=== PATIENT | male | born 1965 | race Caucasian/White ===

== ENCOUNTER 2018-07-28 09:42 | Emergency (ER) | payer OTHER ==
--- NOTE | 2018-07-28 10:30 | EDM.PDOC ---
ED HPI GENERAL MEDICAL PROBLEM - General Chief Complaint: Lower Extremity Injury/Pain Stated Complaint: STAGE 4 CANCER LEG PAIN MAYBE INFECTION Time Seen by Provider: 07/28/18 10:10 Source of Information: Reports: Patient History Limitations: Reports: No Limitations - History of Present Illness INITIAL COMMENTS - FREE TEXT/NARRATIVE: 53-year-old male with metastatic renal cancer has developed an inflammatory red painful right knee over the past 3 days. No trauma. He takes a daily dose of chemotherapy, it is his only medication. Onset: Gradual Duration: Day(s): (3 days) Associated Symptoms: Denies: Fever/Chills Right Knee Pain Score (Numeric/FACES): 9 - Related Data Allergies Allergy/AdvReac Type Severity Reaction Status Date / Time aspirin [From Percodan] Allergy Facial Verified 07/28/18 09:56 Swelling oxycodone [From Percodan] Allergy Facial Verified 07/28/18 09:56 Swelling Home Meds: Home Meds *Medical Marijuana 07/28/18 [History] Cabozantinib S-Malate [Cabometyx] 40 mg PO DAILY 07/28/18 [History] Past Medical History Genitourinary History: Reports: Other (See Below) Other Genitourinary History: one kidney Musculoskeletal History: Reports: Fracture Oncologic (Cancer) History: Reports: Metastatic, Renal - Past Surgical History Respiratory Surgical History: Reports: Lung Resection, Other (See Below) Other Respiratory Surgeries/Procedures: Partial lung resection d/t cancer Male Surgical History: Reports: Nephrectomy, Other (See Below) Other Male Surgeries/Procedures: kidney removed d/t cancer Social & Family History - Tobacco Use Smoking Status *Q: Never Smoker - Recreational Drug Use Recreational Drug Use: No Review of Systems - Review of Systems Review Of Systems: See Below Constitutional: Denies: Fever Respiratory: Denies: Shortness of Breath Musculoskeletal: Reports: Leg Pain Skin: Reports: Erythema ED EXAM, GENERAL - Physical Exam Exam: See Below Exam Limited By: No Limitations General Appearance: Alert, Mild Distress (Looks fairly uncomfortable, especially when trying to move or ambulate) Respiratory/Chest: No Respiratory Distress Extremities: Other (Exam is limited to the lower extremities. The left knee is nontender, no swelling or effusion. The right knee compared to the left has some anterior swelling, is markedly tender and warm to touch over the prepatellar bursal area just below the patella. He has no pain laterally and no effusion.) Course - Vital Signs Last Recorded V/S: Last Vital Signs Temp 96.7 F 07/28/18 09:53 Pulse 88 07/28/18 09:53 Resp 16 07/28/18 09:53 BP 160/112 H 07/28/18 09:53 Pulse Ox 96 07/28/18 09:53 - Orders/Labs/Meds Orders: Active Orders 24 hr Category Date Time Status Knee 3V Rt [CR] Stat Exams 07/28/18 10:12 Taken - Re-Assessments/Exams Free Text/Narrative Re-Assessment/Exam: 07/28/18 10:37 An x-ray of the knee is done which confirms normal bones, no effusion or intra- articular or bony pathology. Patient will be placed on Augmentin 875 mg twice daily for presumed right knee cellulitis and bursitis. An Todd wrap was offered for support and he can increase activity as tolerated. Recheck in 48-72 hours if not improving or return sooner if worsening such as fever or increased erythema and pain. Departure - Departure Time of Disposition: 10:54 Disposition: Home, Self-Care 01 Condition: Good Clinical Impression: Bursitis of right knee Qualifiers: Knee bursitis location: prepatellar bursitis Qualified Code(s): M70.41 - Prepatellar bursitis, right knee - Discharge Information Instructions: Bursitis, [id number] Referrals: PCP,None [Primary Care Provider] - Forms: ED Department Discharge Care Plan Goals: Take antibiotic twice daily with food, warm compresses to the knee will increase the antibiotics effectiveness and fighting the infection an Todd wrap and will help swelling. Consider rechecking in 2-3 days if not improving satisfactorily or anytime sooner if worsening such as fever or increased swelling or pain despite treatment. - My Orders Last 24 Hours: My Active Orders 07/28/18 10:12 Knee 3V Rt [CR] Stat - Assessment/Plan Last 24 Hours: My Active Orders 07/28/18 10:12 Knee 3V Rt [CR] Stat
== END 2018-07-28 10:54 | disposition home or self-care (01) ==
LOC: JP.ED 09:42
DX: M70.41 Prepatellar bursitis, right knee (principal); C64.9 Malignant neoplasm of unspecified kidney, except renal pelvis; Z88.5 Allergy status to narcotic agent; Z88.8 Allergy status to other drugs, medicaments and biological substances; Z79.899 Other long term (current) drug therapy
CPT/HCPCS: 73562-RT; 99283

== ENCOUNTER 2019-08-04 16:44 | Emergency (ER) | payer MEDICARE, OTHER ==
--- NOTE | 2019-08-04 17:43 | EDM.PDOC ---
<Glenn Ferro D - Last Filed: 08/04/19 18:12> ED HPI GENERAL MEDICAL PROBLEM - General Chief Complaint: Fever Stated Complaint: FEVER Time Seen by Provider: 08/04/19 17:30 Source of Information: Reports: Patient History Limitations: Reports: No Limitations - History of Present Illness INITIAL COMMENTS - FREE TEXT/NARRATIVE: 54-year-old male with metastatic renal cell carcinoma was called for follow-up today on his depression and he told his primary provider that he was running a fever. Because of his chemotherapy, radiation, and possible dehydration he was told to go to the emergency room to get evaluated. He does feel weak, chilled, but he is breathing, chronic cough, abdominal symptoms are all stable and chronic. He also has a significant sore throat. Onset: Unknown/Unsure Improves with: Reports: None Worsens with: Reports: None Associated Symptoms: Reports: Cough, Loss of Appetite, Malaise, Weakness, Other (Ongoing weight loss) Throat Pain Score (Numeric/FACES): 8 - Related Data Allergies Allergy/AdvReac Type Severity Reaction Status Date / Time aspirin [From Percodan] Allergy Facial Verified 08/04/19 17:08 Swelling oxycodone [From Percodan] Allergy Facial Verified 08/04/19 17:08 Swelling Home Meds: Home Meds *Medical Marijuana 1 dose INH ASDIRECTED PRN 07/28/18 [History] Everolimus 5 mg PO DAILY 08/04/19 [History] Lenuatinib 2 cap PO DAILY 08/04/19 [History] Past Medical History Genitourinary History: Reports: Other (See Below) Other Genitourinary History: one kidney Musculoskeletal History: Reports: Fracture Oncologic (Cancer) History: Reports: Metastatic, Renal - Past Surgical History Respiratory Surgical History: Reports: Lung Resection, Other (See Below) Other Respiratory Surgeries/Procedures: Partial lung resection d/t cancer Male Surgical History: Reports: Nephrectomy, Other (See Below) Other Male Surgeries/Procedures: kidney removed d/t cancer Social & Family History - Tobacco Use Smoking Status *Q: Never Smoker Second Hand Smoke Exposure: No - Caffeine Use Caffeine Use: Reports: Coffee - Recreational Drug Use Recreational Drug Use: Yes Recreational Drug Type: Reports: Marijuana/Hashish Recreational Drug Use Frequency: Daily ED ROS GENERAL - Review of Systems Review Of Systems: See Below Constitutional: Reports: Fever, Chills, Malaise, Decreased Appetite HEENT: Reports: Throat Pain Respiratory: Reports: Cough. Denies: Shortness of Breath, Wheezing, Hemoptysis Cardiovascular: Reports: Chest Pain (Significant left lower chest pain from known pulmonary tumor burden) GI/Abdominal: Reports: Nausea, Other (Odynophagia). Denies: Diarrhea Musculoskeletal: Reports: Muscle Pain (Aching all over) Neurological: Reports: Dizziness, Weakness. Denies: Headache ED EXAM, GENERAL - Physical Exam Exam: See Below Exam Limited By: No Limitations General Appearance: Alert, No Apparent Distress Eye Exam: Bilateral Eye: EOMI, Normal Inspection (No jaundice, good hydration) Throat/Mouth: Normal Inspection, Other (No lesions or white plaques or patches seen) Head: Atraumatic Neck: Supple Respiratory/Chest: Other (Decreased breath sounds in the left base, no rales rhonchi or wheezes) Cardiovascular: Regular Rate, Rhythm, Tachycardia GI/Abdominal: Soft, Non-Tender Extremities: Normal Inspection. No: Pedal Edema, Slow Capillary Refill Neurological: Alert, Oriented Psychiatric: Normal Affect, Normal Mood Skin Exam: Warm, Dry Course - Vital Signs Last Recorded V/S: Last Vital Signs Temp 38.2 C H 08/04/19 19:46 Pulse 95 08/04/19 18:35 Resp 16 08/04/19 18:35 BP 113/72 08/04/19 18:35 Pulse Ox 96 08/04/19 18:35 - Orders/Labs/Meds Orders: Active Orders 24 hr Category Date Time Status CULTURE BLOOD [BC] Urgent Lab 08/04/19 17:42 Received CULTURE BLOOD [BC] Urgent Lab 08/04/19 18:00 Received CULTURE STREP A CONFIRMATION [] Stat Lab 08/04/19 18:05 Results STREP SCRN A RAPID W CULT CONF [] Stat Lab 08/04/19 18:05 Results MVI, Adult with Vitamin K [Infuvite Adult] 10 ml Med 08/04/19 17:45 Active Thiamine [Vitamin B-1] 100 mg Folic Acid 1 mg Magnesium Sulfate [Magnesium Sulfate 50%] 3 gm Sodium Chloride 0.9% [Normal Saline] 1,000 ml IV ASDIRECTED Blood Culture x2 Reflex Set [OM.PC] Urgent Oth 08/04/19 17:41 Ordered Medication Orders Multivitamins/Minerals 10 ml/Thiamine HCl 100 mg/ Folic Acid 1 mg/ Magnesium Sulfate 3 gm/ Sodium Chloride 1,017.2 mls @ 1,000 mls/hr IV ASDIRECTED SUE Last Admin: 08/04/19 18:17 Dose: 1,000 mls/hr Labs: Laboratory Tests 08/04/19 08/04/19 Range/Units 17:42 17:42 WBC (4.5-11.0) K/uL RBC (4.30-5.90) M/uL Hgb (12.0-15.0) g/dL Hct (40.0-54.0) % MCV (80-98) fL MCH (27-31) pg MCHC (32-36) % Plt Count (150-400) K/uL Neut % (Auto) (36-66) % Lymph % (Auto) (24-44) % Wirt % (Auto) (2-6) % Eos % (Auto) (2-4) % Baso % (Auto) (0-1) % Sodium 138 L (140-148) mmol/L Potassium 4.0 (3.6-5.2) mmol/L Chloride 99 L (100-108) mmol/L Carbon Dioxide 25 (21-32) mmol/L Anion Gap 18.0 H (5.0-14.0) mmol/L BUN 17 (7-18) mg/dL Creatinine 1.0 (0.8-1.3) mg/dL Est Cr Clr Drug Dosing 78.95 mL/min Estimated GFR (MDRD) > 60 (>60) Glucose 89 (74-106) mg/dL Calcium 9.3 (8.5-10.1) mg/dL Total Bilirubin 1.0 (0.2-1.0) mg/dL AST 21 (15-37) U/L ALT 26 (12-78) U/L Alkaline Phosphatase 73 (46-116) U/L Total Protein 7.6 (6.4-8.2) g/dL Albumin 3.7 (3.4-5.0) g/dL Globulin 3.9 H (2.3-3.5) g/dL Albumin/Globulin Ratio 1.0 L (1.2-2.2) Meds: Medications Generic Name Dose Route Start Last Admin Trade Name Freq PRN Reason Stop Dose Admin Multivitamins/Minerals 10 ml/ 1,017.2 mls @ 1,000 mls/hr 08/04/19 17:45 08/04 18:17 Thiamine HCl 100 mg/ Folic IV 1,000 mls/hr Acid 1 mg/ Magnesium Sulfate 3 ASDIRECTED SUE Administration gm/ Sodium Chloride Discontinued Medications Generic Name Dose Route Start Last Admin Trade Name Bravo PRN Reason Stop Dose Admin Acetaminophen 1,000 mg 08/04/19 18:33 08/04/19 19:08 Tylenol Extra Strength PO 08/04/19 18:34 Not Given ONETIME ONE Acetaminophen 960 mg 08/04/19 18:35 08/04/19 19:01 Tylenol Solution PO 08/04/19 18:36 960 mg ONETIME ONE Administration - Re-Assessments/Exams Free Text/Narrative Re-Assessment/Exam: 08/04/19 17:54 An IV was started, patient will be given a banana bag IV. Influenza antigens were obtained as well as a strep test, blood cultures, CBC and CMP. A two-view chest x-ray was ordered. 08/04/19 18:13 Dr. Choco May is assuming care pending lab and x-ray. Departure - Departure Disposition: Home, Self-Care 01 Clinical Impression: Fever - Discharge Information Instructions: Fever, Adult Referrals: Jesus Lazcano MD [Primary Care Provider] - Forms: ED Department Discharge Additional Instructions: Start antibiotic tonight and take one tablet every day until gone. Use acetaminophen 1000 mg 3 times daily regularly through the weekend. Try to be up and around to the extent that he can. Contact the [facility] tomorrow to review symptoms and also ask about which antidepressant would be recommended. If you feel worse in anyway, return here for additional evaluation and possible admission. Sepsis Event Note - Evaluation Sepsis Screening Result: Possible Sepsis Risk - Focused Exam Vital Signs: Vital Signs Temp Pulse Resp BP Pulse Ox 08/04/19 19:46 38.2 C H 08/04/19 19:24 39.4 C H 08/04/19 18:35 38.4 C H 95 16 113/72 96 08/04/19 17:20 38.6 C H 107 H 18 134/85 96 08/04/19 16:58 38.6 C H 107 H 18 134/85 96 Date Exam was Performed: 08/04/19 Time Exam was Performed: 18:12 <Spencer May - Last Filed: 08/04/19 20:17> Course - Re-Assessments/Exams Free Text/Narrative Re-Assessment/Exam: 08/04/19 20:15 The symptom care of patient at 1813 hrs. After receiving a banana bag, 1000 mg of Tylenol, a should felt significantly better. His cultures are pending and I discussed that they will be finalized for another 3 days. I'm going to have him use levofloxacin 750 mg daily over the next 5 days as a prophylactic antibiotic given his overall situation. [facility] to [facility] them about current symptoms and also to ask them to reconcile which antidepressant they would recommend in the context of his current illnesses. Questions answered. He was discharged in improved condition. Departure - Departure Time of Disposition: 20:13 Condition: Good - Discharge Information *PRESCRIPTION DRUG MONITORING PROGRAM REVIEWED*: Not Applicable *COPY OF PRESCRIPTION DRUG MONITORING REPORT IN PATIENT CLAUDINE: Not Applicable Sepsis Event Note - Focused Exam Date Exam was Performed: 08/04/19 Time Exam was Performed: 20:15
[2019-08-04] MEDS ORDERED: MVI, Adult with Vitamin K 10 ML, Thiamine 100 MG, Folic Acid 1 MG, Magnesium Sulfate 3 ... IV SCH ×5 (17:45)
--- NOTE | 2019-08-04 18:17 | CRLCR ---
INDICATION: dyspnea COMPARISON: None available. FINDINGS: PA and lateral views of the chest demonstrate adequate inflation of the lungs. There is a somewhat spiculated subtle ill-defined density at the left hilum. Few patchy densities in the anterior mediastinum, seen only on the lateral view. No pneumothorax or effusion. Heart size is normal. Osseous structures are unremarkable for age. IMPRESSION: 1. Subtle ill-defined slightly spiculated density at the left hilum. Differential considerations include a left hilar mass, adenopathy and prominent vasculature. Recommend further evaluation with contrast-enhanced CT, which can be done on a nonemergent basis. 2. Patchy densities projecting over the anterior mediastinum on the lateral view, may represent pneumonia or atelectasis. Dictated by James Mcmanus MD @ 08/04/2019 6:15:12 PM Dictated by: James Mcmanus MD @ 08/04/2019 18:15:18 (Electronically Signed)
[2019-08-04] MEDS ORDERED: Acetaminophen 500 MG Tab PO ONE (18:33)
[2019-08-04] MEDS ORDERED: Acetaminophen Soln 160 MG/5 ML UD Cup PO ONE (18:35)
== END 2019-08-04 20:22 | disposition home or self-care (01) ==
LOC: JP.ED 16:44
DX: R50.9 Fever, unspecified (principal); Z88.6 Allergy status to analgesic agent; Z88.5 Allergy status to narcotic agent; Z85.528 Personal history of other malignant neoplasm of kidney
CPT/HCPCS: 36415; 71046; 80053; 85025; 87040; 87081; 87804; 87880; 96365; 99283; A9270; J3411; J3475; J7030; J3490

== ENCOUNTER 2019-10-24 16:15 | Emergency (ER) | payer OTHER ==
[2019-10-24] MEDS ORDERED: Sodium Chloride 0.9% 10 ML Syringe FLUSH PRN (16:46)
--- NOTE | 2019-10-24 16:46 | EDM.PDOC ---
<Nate Corado G - Last Filed: 10/24/19 17:24> ED HPI GENERAL MEDICAL PROBLEM - General Chief Complaint: Respiratory Problem Stated Complaint: POSSIBLE LUNG CLOT Time Seen by Provider: 10/24/19 16:43 Source of Information: Reports: Patient, Old Records, Other (oncologist's office in [place]) History Limitations: Reports: No Limitations - History of Present Illness INITIAL COMMENTS - FREE TEXT/NARRATIVE: 54 yo male with a PHx of metastatic renal CA with mets to the lungs is referred by his oncologist's office to our ER today for increased SOB and bilateral pleuritic back pain. His oncologist is concerned mostly about PE. He had some transient L calf pain a couple days ago, not now. Pain in back also is worse with some movements. He used medical marijuana for his pain with some relief. Onset: Today, Sudden Onset Date: 10/24/19 Duration: Hour(s):, Waxing/Waning Location: Reports: Chest, Back Quality: Reports: Stabbing Severity: Severe (intermittent pain) Improves with: Reports: Rest (and shallow breathing) Worsens with: Reports: Movement (and deep breathing) Context: Reports: Other (see HPI) Associated Symptoms: Reports: Chest Pain (posterior chest), Shortness of Breath (mild). 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 (see below) (medical marijuana) - Related Data Allergies Allergy/AdvReac Type Severity Reaction Status Date / Time aspirin [From Percodan] Allergy Facial Verified 10/24/19 16:51 Swelling oxycodone [From Percodan] Allergy Facial Verified 10/24/19 16:51 Swelling Home Meds: Home Meds *Medical Marijuana 1 dose INH ASDIRECTED PRN 07/28/18 [History] Everolimus 5 mg PO DAILY 08/04/19 [History] Lenuatinib 2 cap PO DAILY 08/04/19 [History] Pantoprazole [ProTONIX Granules] 40 mg PO DAILY 10/24/19 [History] Past Medical History Genitourinary History: Reports: Other (See Below) Other Genitourinary History: one kidney Musculoskeletal History: Reports: Fracture Oncologic (Cancer) History: Reports: Metastatic, Renal - Past Surgical History Respiratory Surgical History: Reports: Lung Resection, Other (See Below) Other Respiratory Surgeries/Procedures: Partial lung resection d/t cancer Male Surgical History: Reports: Nephrectomy, Other (See Below) Other Male Surgeries/Procedures: kidney removed d/t cancer Social & Family History - Caffeine Use Caffeine Use: Reports: Coffee ED ROS GENERAL - Review of Systems Review Of Systems: See Below Constitutional: Reports: No Symptoms HEENT: Reports: No Symptoms Respiratory: Reports: Shortness of Breath (mild), Pleuritic Chest Pain ( posterior chest). Denies: Wheezing, Cough, Sputum, Hemoptysis Cardiovascular: Reports: No Symptoms Endocrine: Reports: No Symptoms GI/Abdominal: Reports: No Symptoms : Reports: No Symptoms Musculoskeletal: Reports: No Symptoms Skin: Reports: No Symptoms Neurological: Reports: No Symptoms Psychiatric: Reports: No Symptoms ED EXAM, GENERAL - Physical Exam Exam: See Below Exam Limited By: No Limitations General Appearance: Alert, WD/WN, No Apparent Distress, Thin Eye Exam: Bilateral Eye: Normal Inspection Ears: Normal External Exam, Normal Canal, Hearing Grossly Normal Ear Exam: Bilateral Ear: Auricle Normal, Canal Normal Nose: Normal Inspection, No Blood Throat/Mouth: Normal Inspection, Normal Lips, Normal Oropharynx, Normal Voice, No Airway Compromise Head: Atraumatic, Normocephalic Neck: Normal Inspection Respiratory/Chest: No Respiratory Distress, Lungs Clear, Normal Breath Sounds, No Accessory Muscle Use Cardiovascular: Regular Rate, Rhythm, No Edema, Tachycardia GI/Abdominal: Normal Bowel Sounds, Soft, Non-Tender, No Distention Back Exam: Normal Inspection. No: CVA Tenderness (R), CVA Tenderness (L) Extremities: Normal Inspection, Normal Range of Motion, Non-Tender, No Pedal Edema Neurological: Alert, Oriented, CN II-XII Intact, Normal Cognition, No Motor/ Sensory Deficits Psychiatric: Normal Affect, Normal Mood Skin Exam: Warm, Dry, Intact, Normal Color, No Rash Course - Vital Signs Last Recorded V/S: Last Vital Signs Temp 36.5 C 10/24/19 20:01 Pulse 108 H 10/24/19 16:54 Resp 16 10/24/19 16:54 BP 122/77 10/24/19 16:54 Pulse Ox 96 10/24/19 16:54 - Orders/Labs/Meds Orders: Active Orders 24 hr Category Date Time Status Chest 1V Frontal [CR] Stat Exams 10/24/19 19:44 Taken Iopamidol [Isovue-370 (76%)] Med 10/24/19 17:45 Active 100 ml IV . DIRECTED Levofloxacin/Dextrose 5%-Water [Levaquin in D5W 500 MG/ Med 10/24/19 19:45 Active 100 ML] 500 mg Premix Bag 1 bag IV ONETIME Sodium Chloride 0.9% [Normal Saline] 1,000 ml Med 10/24/19 17:30 Active IV ASDIRECTED Sodium Chloride 0.9% [Normal Saline] 100 ml Med 10/24/19 17:45 Active IV ASDIRECTED Sodium Chloride 0.9% [Saline Flush] Med 10/24/19 16:46 Active 10 ml FLUSH ASDIRECTED PRN Sodium Chloride 0.9% [Saline Flush] Med 10/24/19 17:45 Active 10 ml FLUSH ONETIME Saline Lock Insert [OM.PC] Routine Oth 10/24/19 16:46 Ordered Medication Orders Sodium Chloride (Normal Saline) 1,000 mls @ 500 mls/hr IV ASDIRECTED SUE Sodium Chloride (Normal Saline) 100 mls @ 4 mls/sec IV ASDIRECTED SUE Last Admin: 10/24/19 17:43 Dose: 4 mls/sec Levofloxacin/Dextrose 500 mg/ (Premix) 100 mls @ 100 mls/hr IV ONETIME ONE Stop: 10/24/19 20:44 Last Admin: 10/24/19 19:59 Dose: 100 mls/hr Iopamidol (Isovue-370 (76%)) 100 ml IV . DIRECTED SUE Last Admin: 10/24/19 17:43 Dose: 100 ml Sodium Chloride (Saline Flush) 10 ml FLUSH ASDIRECTED PRN PRN Reason: Keep Vein Open Last Admin: 10/24/19 17:08 Dose: 10 ml Sodium Chloride (Saline Flush) 10 ml FLUSH ONETIME SUE Last Admin: 10/24/19 17:44 Dose: 10 ml Labs: Laboratory Tests 10/24/19 10/24/19 10/24/19 Range/Units 16:45 16:45 16:45 WBC 8.3 (4.5-11.0) K/uL RBC 4.54 (4.30-5.90) M/uL Hgb 11.7 L (12.0-15.0) g/dL Hct 37.6 L (40.0-54.0) % MCV 83 (80-98) fL MCH 26 L (27-31) pg MCHC 31 L (32-36) % Plt Count 327 (150-400) K/uL D-Dimer, Quantitative 803 H (0.0-400.0) ng/mL Sodium 139 L (140-148) mmol/L Potassium 5.0 (3.6-5.2) mmol/L Chloride 102 (100-108) mmol/L Carbon Dioxide 32 (21-32) mmol/L Anion Gap 10.0 (5.0-14.0) mmol/L BUN 17 (7-18) mg/dL Creatinine 0.9 (0.8-1.3) mg/dL Est Cr Clr Drug Dosing 80.29 mL/min Estimated GFR (MDRD) > 60 (>60) Glucose 113 H (74-106) mg/dL Calcium 9.2 (8.5-10.1) mg/dL Meds: Medications Generic Name Dose Route Start Last Admin Trade Name Freq PRN Reason Stop Dose Admin Sodium Chloride 1,000 mls @ 500 mls/hr 10/24/19 17:30 Normal Saline IV ASDIRECTED SUE Sodium Chloride 100 mls @ 4 mls/sec 10/24/19 17:45 10/24/19 17:43 Normal Saline IV 4 mls/sec ASDIRECTED SUE Administration Levofloxacin/Dextrose 500 mg/ 100 mls @ 100 mls/hr 10/24/19 19:45 10/24/19 19 :59 Premix IV 10/24/19 20:44 100 mls/hr ONETIME ONE Administration Iopamidol 100 ml 10/24/19 17:45 10/24/19 17:43 Isovue-370 (76%) IV 100 ml . DIRECTED SUE Administration Sodium Chloride 10 ml 10/24/19 16:46 10/24/19 17:08 Saline Flush FLUSH 10 ml ASDIRECTED PRN Administration Keep Vein Open Sodium Chloride 10 ml 10/24/19 17:45 10/24/19 17:44 Saline Flush FLUSH 10 ml ONETIME SUE Administration - Radiology Interpretation Free Text/Narrative:: angio Chest- CT Results Date: 10/24/19 Departure - Departure Disposition: Home, Self-Care 01 Clinical Impression: Pleural effusion, left, Renal cell carcinoma, Pneumonia of both upper lobes - Discharge Information Referrals: PCP,None [Primary Care Provider] - Forms: ED Department Discharge Care Plan Goals: appt in the next 2 days at the [facility] to have his left chest tapped. Bilateral upper lobe pneumonia, -- is present and pt was placed on levoquin. Pt should return if his sob gets worse. Sepsis Event Note - Focused Exam Vital Signs: Vital Signs Temp Pulse Resp BP Pulse Ox 10/24/19 20:01 36.5 C 10/24/19 16:54 36.9 C 108 H 16 122/77 96 10/24/19 16:32 36.9 C 108 H 16 122/77 96 Date Exam was Performed: 10/24/19 Time Exam was Performed: 17:25 - My Orders Last 24 Hours: My Active Orders 10/24/19 19:44 Chest 1V Frontal [CR] Stat 10/24/19 19:45 Levofloxacin/Dextrose 5%-Water [Levaquin in D5W 500 MG/100 ML] 500 mg Premix Bag 1 bag IV ONETIME - Assessment/Plan Last 24 Hours: My Active Orders 10/24/19 19:44 Chest 1V Frontal [CR] Stat 10/24/19 19:45 Levofloxacin/Dextrose 5%-Water [Levaquin in D5W 500 MG/100 ML] 500 mg Premix Bag 1 bag IV ONETIME <Khushbu Burgess - Last Filed: 10/24/19 20:22> Course - Re-Assessments/Exams Free Text/Narrative Re-Assessment/Exam: 10/24/19 19:42 cat scan reveals a dense pneumonia in the left upper lobe. There is a area in the rt upper lobe also. He has a large left sided effusion. There are multiple nodules. He is feeling increased sob. Oncology was called and he recomended giving the pt a dose of 1v levoquin, He felt like his primary oncologist should talk to the pt tomorrow. If the effusion is very larg it should be tapped. 10/24/19 19:52 10/24/19 20:18 His cat scan report was faxed to his oncologist Dr GALARZA at the [facility]. It was indicated that he needed a urgent appt. He does need his chest tapped. Departure - Departure Time of Disposition: 20:19 Condition: Fair Sepsis Event Note - Focused Exam Date Exam was Performed: 10/24/19 Time Exam was Performed: 20:18 - My Orders Last 24 Hours: My Active Orders 10/24/19 19:44 Chest 1V Frontal [CR] Stat 10/24/19 19:45 Levofloxacin/Dextrose 5%-Water [Levaquin in D5W 500 MG/100 ML] 500 mg Premix Bag 1 bag IV ONETIME - Assessment/Plan Last 24 Hours: My Active Orders 10/24/19 19:44 Chest 1V Frontal [CR] Stat 10/24/19 19:45 Levofloxacin/Dextrose 5%-Water [Levaquin in D5W 500 MG/100 ML] 500 mg Premix Bag 1 bag IV ONETIME
[2019-10-24] MEDS ORDERED: Sodium Chloride 0.9% 1,000 ML IV SCH (17:30)
[2019-10-24] MEDS ORDERED: Iopamidol 755 Mg/ML 100 ML Bottle IV SCH (17:45)
[2019-10-24] MEDS ORDERED: Sodium Chloride 0.9% 100 ML IV SCH (17:45)
[2019-10-24] MEDS ORDERED: Sodium Chloride 0.9% 10 ML Syringe FLUSH SCH (17:45)
--- NOTE | 2019-10-24 19:15 | CRLCT ---
INDICATION: Elevated D-dimer. Shortness of breath. Stage IV metastatic lung cancer. TECHNIQUE: CT chest PE was acquired with 100 cc Isovue 370 IV contrast. COMPARISON: None. FINDINGS: Heart and vasculature: Contrast opacification of the pulmonary arterial tree is adequate. No sign of pulmonary embolism. Heart size is normal. Thoracic aorta and pulmonary artery are normal in caliber. Lungs and pleural: Dense airspace consolidation with air bronchograms present in the left upper lobe. Peripheral bronchiolitis also present in the left lower lobe and right upper lobe. A 12 mm nodule is in the left lower lobe on series 5, image 107. Sub centimeter nodule is in the right upper lobe on image 32. Subcentimeter nodule also in the inferior anterior right upper lobe on image 76. Few other small scattered nodules also present. Large left-sided pleural effusion. Lymph nodes/mediastinum: No mediastinal, hilar, or axillary adenopathy. Thyroid gland is normal. Chest wall: No masses. Upper abdomen: Normal. Bones: Unremarkable for age. IMPRESSION: 1. No pulmonary embolism. 2. Dense left upper lobe pneumonia. Smaller areas of bronchiolitis are in the left lower lobe and right upper lobe. 3. Several scattered small pulmonary nodules suspicious for metastatic disease. No comparison exam to assess for changes of this finding. Dictated by Carlos Schneider MD @ 10/24/2019 7:14:13 PM Please note that all CT scans at this facility use dose modulation, iterative reconstruction, and/or weight-based dosing when appropriate to reduce radiation dose to as low as reasonably achievable. Dictated by: Carlos Schneider MD @ 10/24/2019 19:14:20 (Electronically Signed)
[2019-10-24] MEDS ORDERED: Levofloxacin/Dextrose 5%-Water 500 MG in Premix Bag 1 BAG IV ONE (19:45)
--- NOTE | 2019-10-25 09:57 | CR ---
CHEST: Portable 10/24/20191949 CLINICAL HISTORY:SOB COMPARISON:08/04/2019 FINDINGS: There is masslike density in the left the hilum with perihilar infiltrate. There is a small to moderate left pleural effusion. This is a progression of disease since the July study. There is some ill-defined density in the right suprahilar region. There are postsurgical changes in the right apex and right lung base. IMPRESSION: Enlarging left hilar mass and perihilar infiltrate. If the diagnosis of lung neoplasm has not been made, a PET scan should be considered. Small to moderate left pleural effusion Postsurgical changes seen in the right lung
== END 2019-10-24 21:07 | disposition home or self-care (01) ==
LOC: JP.ED 16:15
DX: J90 Pleural effusion, not elsewhere classified (principal); J18.9 Pneumonia, unspecified organism; C64.9 Malignant neoplasm of unspecified kidney, except renal pelvis; Z88.6 Allergy status to analgesic agent; Z88.5 Allergy status to narcotic agent
CPT/HCPCS: 36415; 71045; 71275; 80048; 85027; 85379; 96365; 99285; J1956; J7050; Q9967